=== PATIENT | male | born 1960 | race American Indian/Alaskan Native ===

== ENCOUNTER 2017-01-19 08:16 | Day surgery (SDC) | payer MEDICAID ==
[2017-01-01 07:22] VITALS: BMI 23.3
[2017-01-19] MEDS ORDERED: Propofol 10 mg/ml Inj (20 ML) ONE ×2 (10:00→10:22)
[2017-01-19] MEDS ORDERED: Midazolam 2 MG/2 ML VIAL ONE (10:01)
[2017-01-19 10:12] VITALS: O2SAT 99
[2017-01-19 10:54] VITALS: RESP 16
[2017-01-19 11:36] VITALS: BP 121/74; PULSE 78; TEMP 97.7
== END 2017-01-19 12:01 | disposition home or self-care (01) ==
LOC: ENDO 08:16
PROVIDERS: ATTEND Internal Medicine
DX: C20 Malignant neoplasm of rectum (principal); K62.6 Ulcer of anus and rectum; Z92.21 Personal history of antineoplastic chemotherapy; Z92.3 Personal history of irradiation
CPT/HCPCS: 45331; 45341; 88305; J2250; J2704; J3010